=== PATIENT | female | born 1955 | race Caucasian/White ===

== ENCOUNTER → 2019-01-17 | Outpatient (CLI) | payer OTHER ==
[~2019-01-17] VITALS: Ht 160 cm; Wt 68.9 kg
[~2019-01-17] MED LIST: ASPIR 8181 MG PO
[2019-01-17 08:49] VITALS: BP 108/63; BP 119/63
[2019-01-17 09:08] LABS: ABSOLUTE EOSINOPHILS 0.2 thou/uL (0.0-0.7); ABSOLUTE NEUTROPHILS 2.8 thou/uL (1.6-8.1); HEMOGLOBIN 13.2 gm/dL (12.0-15.0); MCH 33.5 pg (26.0-34.0); MCHC 34.8 g/dL (28.0-37.0); MCV 96.3 fL (80.0-100.0); NUCLEATED RBCS 0 /100WBC; PLATELET COUNT* 234 thou/uL (150-400); RBC 3.94 mil/uL (4.20-5.00); RDW-CV 12.2 % (10.5-14.5); WBC 4.7 thou/uL (4.0-11.0)
[2019-01-17 09:31] LABS: APTT 28.3 Seconds (25.0-31.3); PROTIME 9.8 Seconds (9.20-11.50)
[2019-01-17 09:48] LABS: ABSOLUTE LYMPHOCYTES 1.6 thou/uL (0.8-5.3); ABSOLUTE MONOCYTES 0.1 thou/uL (0.0-1.2)
[2019-01-17 09:49] LABS: PLATELET ESTIMATE ADEQUATE
[2019-01-17 11:56] VITALS: BP 110/60
[2019-01-17 12:15] VITALS: BP 104/58
--- NOTE | 2019-01-30 17:06 | PATH ---
[address] [address] PATHOLOGY RPT PROCEDURE Name: YOLY ACE Room: [facility]#: [id number] Admission: 01/17/19 Date of : 57 Discharge: Report #: [id number] Path Case #: [id number] [facility] Accession Number: [id number] . 01 Material submitted: . PART A: bone - BONE MARROW BIOPSY PART B: bone - BONE MARROW CLOT PART C: bone - BONE MARROW ASPIRATE SLIDES PART D: bone - PERIPHERAL BLOOD SMEARS PART E: bone - BONE MARROW FLOW . 01 Clinical history: . 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 A bone marrow biopsy is performed for staging evaluation. . 02 Diagnosis: Bone marrow aspirate, biopsy, cell clot and peripheral blood: - Essentially normal peripheral blood. - Normocellular bone marrow with active hematopoiesis; negative for involvement by a lymphoproliferative disorder or other marrow infiltrative process. (MOOKIE:cristina; 01/23/2019) . . . Special studies report received from [facility], [address] [place] [address], [address], [place], [address], on case [id number], labeled with their number [id number], dated 01/21/2019. . Flow Cytometry: Hematologic Neoplasia Assessment . Clinical History Stage I follicular lymphoma in neck/lymph node . Indication for Study Evaluation for lymphoma . Specimen Bone Marrow Aspirate . Viability 89% (7AAD exclusion) . Interpretation Bone Marrow Aspirate: - No immunophenotypic evidence of a B-cell or T-cell lymphoproliferative disorder. - No immunophenotypic evidence of an abnormal myeloid [place] [address] PATHOLOGY RPT PROCEDURE Name: YOLY ACE Room: [facility]#: [id number] Admission: 01/17/19 Date of : 57 Discharge: Report #: [id number] Path Case #: [id number] increased blast population. . Comments Flow cytometric analysis detected no immunophenotypic evidence of a clonal B-cell population or an increased blast population. Correlation with available clinical, laboratory, and morphologic data is recommended. . Populations Analyzed Myeloid Blasts: 0.7% No significant immunophenotypic abnormalities Lymphocytes: 12% B-cells: 2.8%, polytypic/polyclonal sIg light chain pattern T-cells: no significant abnormalities of the markers tested CD4+ T-cells: 6.6% (including 0.0% CD57+ cells) CD8+ T-cells: 2.0% (including 0.1% CD57+ cells) CD4:CD8: 3.3 NK cells: 1.3% Neutrophilic Cells: 71% No significant abnormalities of the markers tested Monocytic Cells: 6% No significant abnormalities of the markers tested Eosinophils: 6% No relative increase Basophils: 1.1% No relative increase Plasma Cells: 0.2% Few detected; no overt abnormalities of the surface markers tested (plasma cells are typically underrepresented by flow cytometry; cytoplasmic light chains were not assessed) Hematogones: 0.9% Normal B-cell precursors CD45 Negative 1% No significant reactivity with the markers Events/Debris: tested (may represent unlysed red blood cells, erythroid precursors, platelets, debris, etc.) (erythroid precursors may be underrepresented due to sample lysis/processing) . Morphologic Evaluation A slide was reviewed for senior supplier quality engineer purposes only. . Specimen Description Total cell yield: 3.70 x 10 and 6 . Reagent(s) Used CD2, CD3, CD4, CD5, CD7, CD8, CD10, CD11b, CD13, CD14, CD16, CD19, CD20, CD33, CD34, CD38, CD45, CD56, CD57, CD64, CD117, HLA-DR, kappa, lambda . at [facility]. Concepcion Rojo [place] [address] PATHOLOGY RPT PROCEDURE Name: YOLY ACE Room: [facility]#: [id number] Admission: 01/17/19 Date of : 57 Discharge: Report #: [id number] Path Case #: [id number] . Intended Use Flow cytometry is optimally used to immunophenotypically characterize abnormal populations when they are detected. Negative flow cytometry results do not exclude lymphoma or neoplasia. Possible false negative flow cytometry results may occur in, but are not limited to, the following: neoplastic cells in Hodgkin lymphoma are not typically adequately represented by routine clinical flow cytometry; neoplastic cells may be lost or inadequately represented due to degeneration, sample processing, sampling artifact, or patchy involvement; plasma cells are typically underrepresented by flow cytometry; immature cells/blasts may be underrepresented due to hemodilution; myeloproliferative disorders and low grade myelodysplasia may not have immunophenotypic abnormalities or increased blasts. Correlation with all available clinical, laboratory, and morphologic data is always necessary to assess for the possibility of false negative flow cytometry results and to establish a diagnosis. Each marker in this analysis was used to assess for potential antigenic abnormalities or to evaluate detected abnormalities. . Disclaimer(s) This test was performed at [facility]. at [address], [address] - Bill Of Materials Clerk: Tariq Barajas MD. [facility] is a business unit of [employer] a wholly-owned subsidiary of [employer]. . Any image or images that accompany this report are business center representative images only and should not be used to render a diagnosis. . This test was developed and its performance characteristics determined by [facility] It has not been cleared or approved by the Food and Drug Administration (FDA). The FDA has determined that such clearance or approval is not necessary. . For inquiries, the physician may contact Lab: [phone] . A complete copy of the report is on file. . Professional services performed by [facility] at [address] [facility] [address] [address]. Technical services performed by [facility]. at [address] [place] [address], [place] [address]. . (AMJ 01/21/2019) . . [place] [address] PATHOLOGY RPT PROCEDURE Name: YOLY ACE Room: [facility]#: [id number] Admission: 01/17/19 Date of : 57 Discharge: Report #: [id number] Path Case #: [id number] . Special studies [place] [facility], [address] [place] [address], [place] [address], [place], [address], on case [id number], labeled with their number [id number], dated 01/24/2019. . Fluorescence in situ Hybridization (FISH) Report [employer] Analysis . RESULT: No assay specific abnormalities detected by IGH/BCL2 FISH Probe . Specimen Type: Bone Marrow . Indication for Study: Evaluate for hematolymphoid neoplasia . INTERPRETATION: Fluorescence in situ hybridization (FISH) analysis was performed on this patient's specimen using DNA probes for IGH/BCL2. Two hundred interphase nuclei were examined and the signal patterns did not reveal any assay specific abnormalities. Based on the performance characteristics established on this assay, all test values were within the normal reference range. . Genetic changes other than those assayed here cannot be ruled out on the basis of this testing. Correlation with cytogenetic, clinical and pathological findings is suggested for a complete interpretation of the results. . See Flow Cytometry report [id number] for further information. See Cytogenetic report [id number] for further information. . The following [employer] FISH analysis was performed on this patient's specimen: . Probe Detection Parameters Result [facility] IGH/BCL2 Detects an IgH/BCL2 Not Detected nuc yonis(IGH,BCL2)x2(200) translocation . at [facility] [employer]. Tyrone Lorenzana, PhD, [facility] Senior Electron Microscopist, Clinical Cytogenetics . Methodology: The patient specimen is processed onto a glass slide. Fluorescent DNA probe(s) is(are) applied to the cells on the slide under conditions of denaturation followed by hybridization. Stringency washes are applied and the slide is subsequently counterstained. A minimum of 100 interphase nuclei are analyzed unless otherwise indicated [place] [address] PATHOLOGY RPT PROCEDURE Name: YOLY ACE Room: [facility]#: [id number] Admission: 01/17/19 Date of : 57 Discharge: Report #: [id number] Path Case #: [id number] Intended Use: This assay is considered qualitative and is not intended to be used as a measure of quantitative comparison. . Disclaimer This Test was performed by [facility] at [facility], [address]. [facility] is a business unit of [employer] a wholly-owned subsidiary of [employer]. . . Any image(s) that accompany this report is/are a business center representative image(s) only and should not be used to render a diagnosis. . This test was developed and its performance determined by [facility] It has not been cleared or approved by the U.S. Food and Drug Administration. This test is used for clinical purposes. . A complete copy of the report is on file. . Professional services performed by [facility] at [address] [place] [address], [address], [place] [address]. Technical services performed by [facility]. at [address] [place] [address], [place] [address], [place] [address]. . (TERRANCEQ:candace 01/24/2019) . . . [facility]/01/24/2019 . 02 Addendum: . Special studies report received from [facility], [address] [place] [address], [address] [address], on case [id number], labeled with their number [id number], dated 01/29/2019. . Cytogenetic Analysis Report . RESULT: Normal Female Karyotype 46,XX[20] . Specimen Type: Bone Marrow . Indication for Study: Lymphoma . INTERPRETATION: [place] [address] PATHOLOGY RPT PROCEDURE Name: YOLY ACE [facility] [id number] Admission: 01/17/19 Date of : 57 Discharge: Report #: [id number] Path Case #: [id number] Cytogenetic analysis revealed no evidence of an acquired clonal abnormality. These results should be interpreted in the context of clinical and histopathologic findings. . See Flow Cytometry report [id number] for further information. See FISH report [id number] for further information. . Number of Metaphases Counted: 20 Banding: G-banding Number of Metaphase Cells Analyzed: 20 Band Level: 400 Number of Metaphase Cells Karyotyped: 2 Cultures Established: Unstimulated/Stimulated . . at [facility]. Mikayla Craig, PhD, FACMG Director of Clinical Cytogenetics . Disclaimer This Test was performed by [facility]. at [address] [place] [address]. . [facility] is a business unit of [employer] a wholly-owned subsidiary of [employer]. . . Any image(s) that accompany this report is/are a business center representative image(s) only and should not be used to render a diagnosis. . Based on the resolution of this study, standard cytogenetic methodology does not routinely detect subtle or sub-microscopic rearrangements or low level mosaicism. . A complete copy of the report is on file. . Professional services performed by [facility] at [address] [place] [address]. Technical services performed by [facility]. at [address] [place] [address]. . (CLW:candace 01/29/2019) . . JCW/01/29/2019 Addendum Electronically Signed by Mery Cowan MD, Pathologist . 02 Electronically signed: . Jessica Sullivan MD, [place] [address] PATHOLOGY RPT PROCEDURE Name: YOLY ACE Room: [facility]#: [id number] Admission: 01/17/19 Date of : 57 Discharge: Report #: [id number] Path Case #: [id number] [facility]- [id number] . 01 Gross description: . A. Received in formalin labeled "Yoly Ace, core," is a single needle core of shell bone measuring 0.9 cm in length and 0.1 cm in diameter. The specimen is submitted entirely in cassette A1, following decalcification. . B. Received in formalin labeled "Yoly Ace clot," is an aggregate of dark shell blood clot measuring 3.0 x 1.4 x 0.9 cm. The specimen is filtered and entirely submitted in cassette B1 and B2. (TSD; 01/17/2019) TOB/TOB . 02 Microscopic: . Bone marrow procedure notes the bone marrow biopsy performed by Dr. Juarez at [facility]. Specimens are submitted for morphology, flow cytometry and cytogenetic studies. . CBC Data (01/17/2019): WBC 4.7 RBC 3.94, hemoglobin 13.7, hematocrit 38.0, MCV 96.3, RDW 12.2%, platelet count 234,000. White blood cell count differential: 59% segs, 34% lymphs, 3% monos, 4% eos. . Peripheral Blood: Red blood cells are normochromic with minimal anisopoikilocytosis including occasional microcytic forms without schistocytes or morphologic evidence of a hemolytic process identified. Platelets are normal in number and morphology. White blood cells are normal in number with predominance of mature segmented neutrophils. There are no circulating blasts or myeloid left shift identified. The lymphocytes are mostly small and mature with few atypical reactive lymphocytes. . Bone Marrow Aspirate: Marrow spicules are adequate, cellular, and polymorphous. Megakaryocytes are present with normal morphology. Erythroid and granulocytic precursors show full spectrum maturation. There is no increase in blasts or atypical lymphoid cells identified. 500 cell count: 1% blasts, 1% promyelocytes, 15% meta- and myelocytes, 46% segs and bands, 32% erythroid precursors, 6% lymphocytes, 1% monocytes, and 1% plasma cells. The M:E ratio is 2:1. . Iron stain: No iron stain performed on the smears. . Bone Marrow Biopsy and Cell Clot: The bone marrow core biopsy averages 30-40% in cellularity. Megakaryocytes average 1-3/hpf. Abundant erythroid and granulocytic precursors are present without clusters of blasts, atypical lymphoid aggregates, or other marrow infiltrative process. The cell clot shows occasional clusters of hematopoietic elements with [place] [address] PATHOLOGY RPT PROCEDURE Name: YOLY ACE Room: [facility]#: [id number] Admission: 01/17/19 Date of : 57 Discharge: Report #: [id number] Path Case #: [id number] . Iron stain (A1 and B1):Adequate marrow iron stores without ringed sideroblasts. . Reticulin stain (A1): Absent reticulin fibrosis. . (JMQ:cristina; 01/23/2019) . 02 Pathologist provided ICD-10: C82.01 . 02 CPT . 739983, 681290, 095297, 850205, 955965, 295484, 967343, 738813, [id number] Specimen Comment: A courtesy copy of this report has been sent to Specimen Comment: [phone], , . Specimen Comment: Report sent to ,DR YUAN / DR MARSH Specimen Comment: A duplicate report has been generated due to demographic updates. Performed at: 01 [facility] [address] [facility] [address], [place] [id number] MD Suman Sauceda MD Phone: [phone] Performed at: 02 [facility] [address] [id number] MD Jessica Sullivan MD Phone: [phone]
== END | disposition home or self-care (01) ==
LOC: M.INT 08:07
PROVIDERS: Radiology Diagnostic Radiology
DX: D70.4 Cyclic neutropenia (principal); Z98.0 Intestinal bypass and anastomosis status; Z98.890 Other specified postprocedural states; Z90.710 Acquired absence of both cervix and uterus; Z88.0 Allergy status to penicillin; Z79.82 Long term (current) use of aspirin; Z79.01 Long term (current) use of anticoagulants